=== PATIENT | female | born 1970 | race Caucasian/White ===

== ENCOUNTER → 2017-04-15 | Outpatient (CLI) | payer BC ==
[~2017-04-15] MED LIST: CEFTIN250 M1 PO; CO Q-1010 M1 PO; HORMONES; MULTIVITAMIN FO1 CAP PO; NORCO 325 MG-51 TAB PO; VITAMIN D1000 IU PO; [UNRECOGNIZED DRUG - OTHER] PO
== END ==
LOC: MC.RAD 12:58
DX: Z08 Encounter for follow-up examination after completed treatment for malignant neoplasm (principal); Z85.3 Personal history of malignant neoplasm of breast; Z92.3 Personal history of irradiation

== ENCOUNTER 2017-11-02 06:59 | Inpatient (IN) | payer BC ==
[2017-11-02] VITALS (488 sets, daily range): BP systolic 86–102; BP diastolic 48–59; PULSE 83–107; TEMP 98.5–98.6; O2SAT 83–100
[~2017-11-02] VITALS: Ht 167.6 cm; Wt 63.4 kg
[2017-11-02 07:21] LABS: BASO % 0.2 % (0.0-2.0); GRAN # 3.9 (1.4-6.5); GRAN % 86.6 % (42.2-75.2); HEMATOCRIT 37.7 % (37.0-47.0); HEMOGLOBIN 12.8 g/dl (12.5-16.0); LYMPH # 0.5 (1.2-3.4); MEAN CELL VOLUME 92 fl (80.0-100.0); MEAN CORPUSCULAR HEMOGLOBIN 31 pg (27.0-31.0); MEAN CORPUSCULAR HGB CONC 34 g/dl (33.0-37.0); MEAN PLATELET VOLUME 9.7 fl (7.4-10.4); MONO # 0.1 (0.1-0.6); PLATELET COUNT 159 K/mm3 (130-400); RED BLOOD COUNT 4.12 M/mm3 (4.10-5.30); REDCELL DISTRIBUTION WIDTH-CV 11.9 % (11.5-14.5)
[2017-11-02 07:26] LABS: PROTHROMBIN TIME 11.5 SECONDS (9.7-12.8)
[2017-11-02 07:29] LABS: PARTIAL THROMBOPLASTIN TIME 22.1 SECONDS (26.0-37.0)
[2017-11-02 07:36] LABS: ALBUMIN 4.1 gm/dL (3.5-5.0); BILIRUBIN,TOTAL 0.3 mg/dL (0.0-1.0); CALCIUM 9.2 mg/dL (8.4-10.2); CREATININE, serum 0.77 mg/dL (0.52-1.25); POTASSIUM 4.2 mmol/L (3.4-5.0)
[2017-11-02 07:52] LABS: PROLACTIN 31.3 ng/mL (3.0-18.6)
[2017-11-02] MEDS ORDERED: TAMOXIFEN CITRA20 MG PO (08:34)
[2017-11-02 09:08] LABS: INFLUENZA A NEGATIVE; INFLUENZA B NEGATIVE
[2017-11-03] VITALS (468 sets, daily range): BP systolic 89–100; BP diastolic 56–69; PULSE 64–75; TEMP 98.1–98.3; O2SAT 73–100
[2017-11-03 04:06] LABS: COLLECTION METHOD CLEAN CATCH
[2017-11-03 04:15] LABS: MUCOUS Present /lpf; PH 5 (5-8); SQUAMOUS EPITHELIAL None Seen /hpf; URINE APPEARANCE Clear; URINE BACTERIA None Seen /hpf; URINE BILIRUBIN Negative (NEGATIVE); URINE BLOOD Negative (NEGATIVE); URINE COLOR Yellow; URINE GLUCOSE Negative (NEGATIVE); URINE KETONE Negative (NEGATIVE); URINE LEUKOCYTE ESTERASE Negative (NEGATIVE); URINE NITRATE Negative (NEGATIVE); URINE PROTEIN(semi-quant) Negative (NEGATIVE); URINE RBC 0-2 /hpf; URINE UROBILINOGEN Negative (NEGATIVE); URINE WBC 0-2 /hpf
[2017-11-03 04:21] LABS: TRICYCLIC ANTIDEPRESS URINE NEGATIVE
[2017-11-03 06:19] LABS: BASO % 0.2 % (0.0-2.0); EOS % 0.7 % (0-4.0); GRAN # 2.4 (1.4-6.5); GRAN % 56.7 % (42.2-75.2); LYMPH # 1.5 (1.2-3.4); LYMPH % 35.5 % (20.0-51.0); MEAN CELL VOLUME 95 fl (80.0-100.0); MEAN CORPUSCULAR HGB CONC 33 g/dl (33.0-37.0); MEAN PLATELET VOLUME 10.4 fl (7.4-10.4); MONO # 0.3 (0.1-0.6); MONO % 6.7 % (1.7-9.3); PLATELET COUNT 120 K/mm3 (130-400); RED BLOOD COUNT 3.45 M/mm3 (4.10-5.30); REDCELL DISTRIBUTION WIDTH-CV 12.1 % (11.5-14.5)
[2017-11-03 06:34] LABS: CALCIUM 8.5 mg/dL (8.4-10.2); CREATININE, serum 0.76 mg/dL (0.52-1.25); MAGNESIUM 1.9 mg/dL (1.6-2.3); PHOSPHOROUS 3.2 mg/dL (2.5-4.5); POTASSIUM 3.6 mmol/L (3.4-5.0)
[2017-11-03 06:37] LABS: HEMATOCRIT 32.6 % (37.0-47.0); HEMOGLOBIN 10.8 g/dl (12.5-16.0); MEAN CORPUSCULAR HEMOGLOBIN 31 pg (27.0-31.0)
== END 2017-11-03 19:15 | disposition home or self-care (01) | DRG 101 ==
LOC: COL.ER 06:59 → ICU 08:26
PROVIDERS: Emergency Medicine; Internal Medicine
DX: R56.9 Unspecified convulsions (principal); R73.9 Hyperglycemia, unspecified; Z85.3 Personal history of malignant neoplasm of breast; D64.9 Anemia, unspecified
CPT/HCPCS: 99222-AI; 99239; A9585; J1644; J1885; J1953; J2060; J2405; J3010; J7030

== ENCOUNTER 2018-02-21 18:21 | Emergency (ER) | payer BC ==
[~2018-02-21] VITALS: Ht 167.6 cm; Wt 59.1 kg
[~2018-02-21 18:21] MED LIST changes: +TAMOXIFEN CITRA20 MG PO
[2018-02-21 18:30] VITALS: TEMP 98.1
[2018-02-21 19:04] LABS: BASO % 0.3 % (0.0-2.0); EOS # 0.1 (0.0-0.7); EOS % 1.3 % (0-4.0); GRAN # 3.4 (1.4-6.5); HEMATOCRIT 38.7 % (37.0-47.0); HEMOGLOBIN 13.8 g/dl (12.5-16.0); LYMPH # 2.3 (1.2-3.4); LYMPH % 37.3 % (20.0-51.0); MEAN CELL VOLUME 88 fl (80.0-100.0); MEAN CORPUSCULAR HEMOGLOBIN 32 pg (27.0-31.0); MEAN CORPUSCULAR HGB CONC 36 g/dl (33.0-37.0); MEAN PLATELET VOLUME 10.3 fl (7.4-10.4); MONO # 0.4 (0.1-0.6); MONO % 6.9 % (1.7-9.3); PLATELET COUNT 176 K/mm3 (130-400); RED BLOOD COUNT 4.38 M/mm3 (4.10-5.30); REDCELL DISTRIBUTION WIDTH-CV 11.8 % (11.5-14.5)
[2018-02-21] MEDS ORDERED: KEPPRA 500MG500 MG PO (19:07)
[2018-02-21 19:08] LABS: ALBUMIN 4.2 gm/dL (3.5-5.0); BILIRUBIN,TOTAL 0.4 mg/dL (0.0-1.0); CALCIUM 9.2 mg/dL (8.4-10.2); CREATININE, serum 0.85 mg/dL (0.52-1.25); POTASSIUM 3.8 mmol/L (3.4-5.0); TOTAL PROTEIN 8.2 gm/dL (6.4-8.2)
[2018-02-21 19:32] LABS: COLLECTION METHOD CLEAN CATCH
[2018-02-21 19:38] LABS: MUCOUS Present /lpf; PH 9 (5-8); SQUAMOUS EPITHELIAL 0-2 /hpf; URINE APPEARANCE Clear; URINE BACTERIA None Seen /hpf; URINE BILIRUBIN Negative (NEGATIVE); URINE BLOOD Negative (NEGATIVE); URINE COLOR Yellow; URINE GLUCOSE Negative (NEGATIVE); URINE KETONE 1+ (NEGATIVE); URINE LEUKOCYTE ESTERASE Negative (NEGATIVE); URINE NITRATE Negative (NEGATIVE); URINE PROTEIN(semi-quant) Negative (NEGATIVE); URINE RBC 0-2 /hpf; URINE UROBILINOGEN Negative (NEGATIVE)
[2018-02-21] MEDS ORDERED: PERCOCET 325 MG1 TA2 PO (22:16)
[2018-02-21 23:04] VITALS: BP 101/66; PULSE 64
[2018-02-22 14:01] LABS: CARCINOEMBRYONIC ANTIGEN 0.8 ng/mL (0.0-5.0)
[2018-02-23 22:47] LABS: CA-125 17.5 U/mL (0.0-35.0)
== END 2018-02-21 23:10 | disposition home or self-care (01) ==
LOC: COL.ER 18:21
PROVIDERS: Nurse Practitioner; Obstetrics & Gynecology
DX: N83.202 Unspecified ovarian cyst, left side (principal); N13.5 Crossing vessel and stricture of ureter without hydronephrosis; Z85.3 Personal history of malignant neoplasm of breast
CPT/HCPCS: J1170; J1885; J2405; J7030; Q9967

== ENCOUNTER → 2018-02-22 | Outpatient (CLI) | payer BC ==
[~2018-02-22] MED LIST changes: +KEPPRA 500MG500 MG PO; +PERCOCET 325 MG1 TA2 PO
[2018-02-22 13:24] LABS: CALCIUM 8.6 mg/dL (8.4-10.2); CREATININE, serum 0.84 mg/dL (0.52-1.25); POTASSIUM 3.9 mmol/L (3.4-5.0)
== END ==
LOC: COL.LAB 12:58
PROVIDERS: Obstetrics & Gynecology
DX: Z01.89 Encounter for other specified special examinations (principal)